=== PATIENT | female | born 1960 | race Caucasian/White ===

== ENCOUNTER 2016-11-01 09:21 | Day surgery (SDC) | payer BC ==
--- NOTE | ~2016-11-01 | EGD ---
EGD REPORT [facility] [address] [address] NAME: HAYLIE WILCOX : 60 STATUS : REG [facility]#: [id number] AGE: 56 ADM/REG DATE : 11/01/16 MR#: [id number] REPORT SERV DATE: 11/01/16 DICTATED BY: DATE: REPORT STATUS : Draft TRANSCRIBED BY: [employer] DATE: 11/01/16 [facility] Patient Name: Haylie Wilcox Date of : 1960 Attending MD: MIKIE STREETER MD Procedure Date No Time: 11/01/2016 Procedure: Colonoscopy Indications: Screening in patient at increased risk: Family history of 1st-degree relative with colorectal cancer Referring MD: JUAN DHALIWAL Medicines: Monitored Anesthesia Care Complications: No immediate complications. Procedure: Pre-Anesthesia Assessment: - ASA Grade Assessment: III - A patient with severe systemic disease. After I obtained informed consent, the scope was passed under direct vision. Throughout the procedure, the patient's blood pressure, pulse, and oxygen saturations were monitored continuously. The PCF [id number] was introduced through the anus and advanced to the cecum, identified by appendiceal orifice and ileocecal valve. The colonoscopy was performed without difficulty. The patient tolerated the procedure well. The quality of the bowel preparation was good. Findings: The perianal and digital rectal examinations were normal. A sessile polyp was found in the ascending colon. The polyp was diminutive in size. The polyp was removed with a cold biopsy forceps. Resection and retrieval were complete. No other significant abnormalities were identified in a careful examination of the remainder of the colon. There is no endoscopic evidence of diverticula, inflammation, mass or ulcerations in the entire colon. No additional abnormalities were found on retroflexion. Impression: - One diminutive polyp in the ascending colon. Resected and retrieved. Recommendation: - Patient has a contact number available for emergencies. The signs and symptoms of potential delayed complications were discussed with the patient. Return to normal activities tomorrow. Written discharge instructions were provided to the patient. - Return to previous diet. EGD REPORT [address] [address] NAME: HAYLIE WILCOX : [birth year] STATUS : REG [facility]#: [id number] AGE: 56 ADM/REG DATE : 11/01/16 MR#: [id number] REPORT SERV DATE: 11/01/16 DICTATED BY: DATE: REPORT STATUS : Draft TRANSCRIBED BY: [email or web address] DATE: 11/01/16 - Discharge patient to home. - Continue present medications. - Await pathology results. - Repeat colonoscopy in 5 years for surveillance. Procedure Code(s): --- Professional --- 42779, Colonoscopy, flexible, proximal to splenic flexure; with biopsy, single or multiple Diagnosis Code(s): --- Professional --- D12.2, Benign neoplasm of ascending colon Z12.11, Encounter for screening for malignant neoplasm of colon Z80.0, Family history of malignant neoplasm of digestive organs CPT copyright 2013 [employer]. All rights reserved. The codes documented in this report are preliminary and upon nurse practitioner per diem review may be revised to meet current compliance requirements. MIKIE STREETER MD 11/01/2016 1:00 PM This report has been signed electronically. Number of Addenda: 0 Note Initiated On: 11/01/2016 12:26 PM Scope Withdrawal Time 0 hours 9 minutes 0 seconds [address] [place] [address]
--- NOTE | ~2016-11-01 | EGD ---
EGD REPORT [facility] [address] [address] NAME: HAYLIE WILCOX : 60 STATUS : REG [facility]#: [id number] AGE: 56 ADM/REG DATE : 11/01/16 MR#: [id number] REPORT SERV DATE: 11/01/16 DICTATED BY: DATE: REPORT STATUS : Draft TRANSCRIBED BY: [employer] DATE: 11/01/16 [facility] Patient Name: Haylie Wilcox Date of : 1960 Attending MD: MIKIE STREETER MD Procedure Date No Time: 11/01/2016 Procedure: Upper GI endoscopy Indications: Esophageal reflux symptoms that persist despite appropriate therapy Referring MD: JUAN DHALIWAL Medicines: Monitored Anesthesia Care Complications: No immediate complications. Procedure: Pre-Anesthesia Assessment: - ASA Grade Assessment: III - A patient with severe systemic disease. After obtaining informed consent, the endoscope was passed under direct vision. Throughout the procedure, the patient's blood pressure, pulse, and oxygen saturations were monitored continuously. The GIF H190 [id number] was introduced through the mouth, and advanced to the third part of duodenum. The upper GI endoscopy was accomplished without difficulty. The patient tolerated the procedure well. Findings: The Z-line was irregular and was found 39 cm from the incisors, with salmon pink mucosa extending in islands \R\ 1 cm above GEJ. Biopsies were taken with a cold forceps for histology. A small hiatus hernia was present. No other significant abnormalities were identified in a careful examination of the esophagus. There is no endoscopic evidence of ulcerations, varices or nodules in the entire esophagus. Localized prominent gastric folds were found in the gastric body. Biopsies were taken with a cold forceps for histology. No other significant abnormalities were identified in a careful examination of the stomach. There is no endoscopic evidence of erythema, ulceration, varices or mass in the entire examined stomach. The examined duodenum was normal. There is no endoscopic evidence of inflammation, mucosal abnormalities, stenosis or ulceration in the entire examined duodenum. The cardia and gastric fundus were otherwise normal on retroflexion. Impression: - Z-line irregular, 39 cm from the incisors. Biopsied. EGD REPORT [address] [address] NAME: HAYLIE WILCOX : 60 [place] [facility] [place] [id number] AGE: 56 ADM/REG DATE : 11/01/16 MR#: [id number] REPORT SERV DATE: 11/01/16 DICTATED BY: DATE: REPORT STATUS : Draft TRANSCRIBED BY: [employer] DATE: 11/01/16 - Hiatus hernia. - Enlarged gastric folds. Biopsied. - Normal examined duodenum. Recommendation: - Patient has a contact number available for emergencies. The signs and symptoms of potential delayed complications were discussed with the patient. Return to normal activities tomorrow. Written discharge instructions were provided to the patient. - Return to previous diet. - Patient has a contact number available for emergencies. The signs and symptoms of potential delayed complications were discussed with the patient. Return to normal activities tomorrow. Written discharge instructions were provided to the patient. - Discharge patient to home. - Await pathology results. Procedure Code(s): --- Professional --- 82188, Esophagogastroduodenoscopy, flexible, transoral; with biopsy, single or multiple Diagnosis Code(s): --- Professional --- K22.8, Other specified diseases of esophagus K44.9, Diaphragmatic hernia without obstruction or gangrene K29.60, Other gastritis without bleeding K21.9, Gastro-esophageal reflux disease without esophagitis CPT copyright 2013 [employer]. All rights reserved. The codes documented in this report are preliminary and upon chief ii dispatcher review may be revised to meet current compliance requirements. MIKIE STREETER MD 11/01/2016 12:58 PM This report has been signed electronically. Number of Addenda: 0 Note Initiated On: 11/01/2016 12:29 PM Scope Withdrawal Time 0 hours 0 minutes 0 seconds [id number] [place] [id number]
[~2016-11-01 09:21] MED LIST: BREO ELLIPTA INH; EFFEXOR100 MG PO; ESTRADIOL PO; FLONASE NAS; HYDROCHLOROT25 MG PO; KLONO1 PO; LYRICA50 PO; LYRICA75 PO; MIRAPEX125 PO; MIRAPEX250 PO; NORCO1 TA2 PO; PREV15 PO; PREV30 PO; PROAM25 PO; PROAMAT5 PO; SINGULAIR1 PO; SINGULAIR5 PO; SYNTHROID175 MCG PO; SYNTHROID200 MCG PO; VITAMIN B-121000 MC1 SL; VITAMIN D31000 UNIT PO; VIVELLE SY0.1 MG/24 TOP; XYZAL5 MG PO; ZOL100 PO; ZYRTEC ALLGY10 MG PO
== END 2016-11-01 23:59 | disposition home or self-care (01) ==
LOC: DMU 09:21
PROVIDERS: Internal Medicine Gastroenterology
PROC: 0DBK8ZX Excision of Ascending Colon, Via Natural or Artificial Opening Endoscopic, Diagnostic (ICD-10-PCS; 2016-11-01)
PROC: 0DB68ZX Excision of Stomach, Via Natural or Artificial Opening Endoscopic, Diagnostic (ICD-10-PCS; principal; 2016-11-01 13:30)
PROC: 0DB58ZX Excision of Esophagus, Via Natural or Artificial Opening Endoscopic, Diagnostic (ICD-10-PCS; 2016-11-01 13:30)
DX: Z12.11 Encounter for screening for malignant neoplasm of colon (principal); D12.2 Benign neoplasm of ascending colon; K29.50 Unspecified chronic gastritis without bleeding; K31.89 Other diseases of stomach and duodenum; K44.9 Diaphragmatic hernia without obstruction or gangrene; J45.909 Unspecified asthma, uncomplicated; G47.33 Obstructive sleep apnea (adult) (pediatric); I10 Essential (primary) hypertension; M79.7 Fibromyalgia; E03.9 Hypothyroidism, unspecified; E66.01 Morbid (severe) obesity due to excess calories; G43.909 Migraine, unspecified, not intractable, without status migrainosus; F32.9 Major depressive disorder, single episode, unspecified; K21.9 Gastro-esophageal reflux disease without esophagitis; Z88.0 Allergy status to penicillin; Z88.8 Allergy status to other drugs, medicaments and biological substances; Z91.011 Allergy to milk products; Z90.710 Acquired absence of both cervix and uterus; Z79.899 Other long term (current) drug therapy
CPT/HCPCS: 88305; 88342